=== PATIENT | male | born 1965 | race Caucasian/White ===

== ENCOUNTER 2020-06-19 21:40 | Inpatient (IN) | payer SELFPAY ==
[~2020-06-19] VITALS: Ht 167.6 cm; Wt 151.0 kg
[2020-06-19 21:53] VITALS: Ht 167.6 cm; Wt 151.0 kg
[2020-06-19 23:46] LABS: BASOPHIL % 1.2 % (0-2)
[2020-06-19 23:51] LABS: PLATELET COUNT 116 x10^3mcL (130-400); RED CELL DISTRIBUTION WIDTH 18.1 % (11.5-14.5)
[2020-06-20 00:03] LABS: BILIRUBIN TOTAL 0.3 mg/dL (0.20-1.00); CALCIUM 8.4 mg/dL (8.5-10.1); CARBON DIOXIDE 19.1 mmol/L (21-32)
[2020-06-20 00:10] LABS: CREATININE SERUM 16.5 mg/dL (0.7-1.3)
[2020-06-20 09:55] LABS: BASOPHIL % 0.9 % (0.2-1.5)
[2020-06-20 09:58] LABS: UA SPECIFIC GRAVITY 1.025 (1.005-1.035); microscopic required? YES; urine erythrocyte 1+ (NEGATIVE)
[2020-06-20 11:09] LABS: PLATELET COUNT 98 x10^3mcL (152-348)
[2020-06-20 11:10] LABS: rbc morphology (normal/abnorm) NORMAL (NORMAL)
[2020-06-20 11:35] LABS: AMPHETAMINE QUAL UR NONE DETECTED (See below)
[2020-06-20 12:28] LABS: IRON 438 ug/dL (65-170); TOTAL IRON BINDING CAPACITY 154 ug/dL (250-450)
[2020-06-20 12:39] LABS: CALCIUM 8.7 mg/dL (8.5-10.1); CARBON DIOXIDE 15.9 mmol/L (21-32)
[2020-06-20 12:45] LABS: POTASSIUM SERUM 6.2 mmol/L (3.5-5.1)
[2020-06-20 15:25] LABS: CALCIUM 8.3 mg/dL (8.5-10.1); POTASSIUM SERUM 5.3 mmol/L (3.5-5.1)
[2020-06-20 15:35] LABS: CREATININE SERUM 16.4 mg/dL (0.7-1.3)
[2020-06-20 18:30] VITALS: BP 117/45
[2020-06-20 20:52] VITALS: BP 119/51
[2020-06-20 23:59] LABS: CALCIUM 8.3 mg/dL (8.5-10.1); CARBON DIOXIDE 18.9 mmol/L (21-32)
[2020-06-21 00:03] LABS: CREATININE SERUM 17.3 mg/dL (0.7-1.3); POTASSIUM SERUM 6.4 mmol/L (3.5-5.1)
[2020-06-21 00:45] VITALS: BP 117/45
[2020-06-21 03:40] VITALS: BP 95/52
[2020-06-21 05:05] VITALS: BP 121/59
[2020-06-21 06:20] LABS: CALCIUM 8.2 mg/dL (8.5-10.1); CARBON DIOXIDE 20.3 mmol/L (21-32)
[2020-06-21 06:30] LABS: MAGNESIUM 2.5 mg/dL (1.8-2.4); PHOSPHOROUS 8.5 mg/dL (2.5-4.9)
[2020-06-21 06:32] LABS: BASOPHIL % 0.8 % (0.2-1.5)
[2020-06-21 06:34] LABS: POTASSIUM SERUM 6.1 mmol/L (3.5-5.1)
[2020-06-21 06:35] LABS: CREATININE SERUM 17.3 mg/dL (0.7-1.3)
[2020-06-21 07:17] LABS: PLATELET COUNT 77 x10^3mcL (152-348); RED CELL DISTRIBUTION WIDTH 18.4 % (12.1-16.2)
[2020-06-21 08:45] LABS: CREATININE UR 107.1 mg/dL
[2020-06-21 09:04] VITALS: BP 122/61
[2020-06-21 14:48] LABS: rbc morphology (normal/abnorm) ABNORMAL (NORMAL)
[2020-06-21 17:31] VITALS: BP 125/57
[2020-06-21 22:37] VITALS: BP 118/64
[2020-06-22 05:47] VITALS: BP 128/54
[2020-06-22 08:05] VITALS: BP 141/57
[2020-06-22 08:18] LABS: BASOPHIL % 1.1 % (0.2-1.5)
[2020-06-22 08:30] LABS: CALCIUM 7.8 mg/dL (8.5-10.1); CARBON DIOXIDE 25.4 mmol/L (21-32); PHOSPHOROUS 8.4 mg/dL (2.5-4.9); POTASSIUM SERUM 4.7 mmol/L (3.5-5.1)
[2020-06-22 08:45] LABS: CREATININE SERUM 14.1 mg/dL (0.7-1.3)
[2020-06-22 12:13] VITALS: BP 112/50
[2020-06-22 12:28] LABS: PLATELET COUNT 75 x10^3mcL (152-348)
[2020-06-22 14:39] LABS: rbc morphology (normal/abnorm) NORMAL (NORMAL)
[2020-06-22 16:03] VITALS: BP 20/59
[2020-06-22 16:19] LABS: PLATELET COUNT 74 x10^3mcL (152-348)
[2020-06-22 18:41] LABS: BAND NEUTROPHIL 0 % (0-10); BASOPHIL 0 % (0-2); MONOCYTE 14 % (0-7); SEGMENTED NEUTROPHILS 55 % (37-75)
[2020-06-22 18:42] LABS: rbc morphology (normal/abnorm) NORMAL (NORMAL)
[2020-06-22 21:27] VITALS: BP 125/62
[2020-06-22 22:03] LABS: PLATELET COUNT 79 x10^3mcL (152-348); RED CELL DISTRIBUTION WIDTH 17.5 % (12.1-16.2)
[2020-06-22 22:20] LABS: BAND NEUTROPHIL 3 % (0-10); BASOPHIL 0 % (0-2); MONOCYTE 13 % (0-7); MYELOCYTE 1 % (0-2); SEGMENTED NEUTROPHILS 45 % (37-75)
[2020-06-22 22:22] LABS: rbc morphology (normal/abnorm) ABNORMAL (NORMAL)
[2020-06-22 22:23] LABS: PLATELET MORPHOLOGY PLATELETS DECREASED
[2020-06-23 06:01] VITALS: BP 139/68
[2020-06-23 07:55] LABS: PLATELET COUNT 67 x10^3mcL (152-348)
[2020-06-23 08:28] LABS: CALCIUM 7.9 mg/dL (8.5-10.1); CARBON DIOXIDE 27.4 mmol/L (21-32); MAGNESIUM 1.8 mg/dL (1.8-2.4); PHOSPHOROUS 6.5 mg/dL (2.5-4.9); POTASSIUM SERUM 4.4 mmol/L (3.5-5.1)
[2020-06-23 09:01] VITALS: BP 131/71
[2020-06-23 10:19] LABS: CREATININE SERUM 11.7 mg/dL (0.7-1.3)
[2020-06-23 17:55] VITALS: BP 149/85
[2020-06-23 22:23] VITALS: BP 141/70
[2020-06-24 06:12] VITALS: BP 130/61
[2020-06-24 07:33] LABS: CALCIUM 8.2 mg/dL (8.5-10.1); CARBON DIOXIDE 26.5 mmol/L (21-32); MAGNESIUM 1.8 mg/dL (1.8-2.4); PHOSPHOROUS 6.5 mg/dL (2.5-4.9); POTASSIUM SERUM 5.1 mmol/L (3.5-5.1)
[2020-06-24 07:39] LABS: CREATININE SERUM 13.4 mg/dL (0.7-1.3)
[2020-06-24 07:46] LABS: PLATELET COUNT 68 x10^3mcL (152-348); RED CELL DISTRIBUTION WIDTH 16.6 % (12.1-16.2)
[2020-06-24 08:54] VITALS: BP 129/61
[2020-06-24 13:01] VITALS: BP 135/68
[2020-06-24 14:18] LABS: MONOCYTE 10 % (0-7); SEGMENTED NEUTROPHILS 53 % (37-75)
[2020-06-24 14:21] LABS: rbc morphology (normal/abnorm) NORMAL (NORMAL)
[2020-06-24 18:40] VITALS: BP 145/71
[2020-06-24 20:39] VITALS: BP 136/66
[2020-06-25] VITALS: BP 147/75
[2020-06-25 05:18] VITALS: BP 144/69
[2020-06-25 09:13] LABS: CARBON DIOXIDE 29.2 mmol/L (21-32); CREATININE SERUM 10.3 mg/dL (0.7-1.3); MAGNESIUM 1.8 mg/dL (1.8-2.4); POTASSIUM SERUM 4.1 mmol/L (3.5-5.1)
[2020-06-25 09:26] LABS: PLATELET COUNT 75 x10^3mcL (152-348)
[2020-06-25 09:28] VITALS: BP 141/70
[2020-06-25 12:45] VITALS: BP 142/69
[2020-06-25 13:08] LABS: BAND NEUTROPHIL 5 % (0-10); SEGMENTED NEUTROPHILS 39 % (37-75)
[2020-06-25 13:09] LABS: MONOCYTE 15 % (0-7); PLATELET MORPHOLOGY PLATELETS DECREASED; rbc morphology (normal/abnorm) NORMAL (NORMAL)
[2020-06-25 17:02] VITALS: BP 145/87
[2020-06-25 21:01] VITALS: BP 110/59
[2020-06-26 05:42] VITALS: BP 133/73
[2020-06-26 08:03] LABS: CALCIUM 8.5 mg/dL (8.5-10.1); CARBON DIOXIDE 27.3 mmol/L (21-32); MAGNESIUM 1.8 mg/dL (1.8-2.4); PHOSPHOROUS 5.1 mg/dL (2.5-4.9); POTASSIUM SERUM 4.5 mmol/L (3.5-5.1)
[2020-06-26 08:05] VITALS: BP 133/78
[2020-06-26 08:08] LABS: CREATININE SERUM 11.8 mg/dL (0.7-1.3)
[2020-06-26 08:56] LABS: PLATELET COUNT 84 x10^3mcL (152-348); RED CELL DISTRIBUTION WIDTH 17.2 % (12.1-16.2)
[2020-06-26 10:59] LABS: BAND NEUTROPHIL 5 % (0-10); MONOCYTE 14 % (0-7); SEGMENTED NEUTROPHILS 40 % (37-75); rbc morphology (normal/abnorm) NORMAL (NORMAL)
[2020-06-26 11:00] LABS: PLATELET MORPHOLOGY PLATELETS DECREASED
[2020-06-26 11:53] VITALS: BP 145/67
[2020-06-26 20:43] VITALS: BP 138/68
[2020-06-27 05:47] VITALS: BP 135/71
[2020-06-27 09:21] VITALS: BP 134/69
[2020-06-27 10:19] LABS: CALCIUM 8.7 mg/dL (8.5-10.1); CARBON DIOXIDE 27.1 mmol/L (21-32); MAGNESIUM 1.8 mg/dL (1.8-2.4); PHOSPHOROUS 4.3 mg/dL (2.5-4.9); POTASSIUM SERUM 4.1 mmol/L (3.5-5.1)
[2020-06-27 11:08] LABS: BASOPHIL % 1.1 % (0.2-1.5)
[2020-06-27 11:31] LABS: CREATININE SERUM 10.3 mg/dL (0.7-1.3)
[2020-06-27 12:45] LABS: PLATELET COUNT 100 x10^3mcL (152-348); RED CELL DISTRIBUTION WIDTH 16.8 % (12.1-16.2)
[2020-06-27 13:00] VITALS: BP 109/64
[2020-06-27 16:04] VITALS: BP 112/52
[2020-06-27 21:53] VITALS: BP 114/61
[2020-06-28 06:06] VITALS: BP 125/62
[2020-06-28 07:40] VITALS: BP 141/67
[2020-06-28 08:21] LABS: BASOPHIL % 1.2 % (0.2-1.5)
[2020-06-28 09:01] LABS: PLATELET COUNT 101 x10^3mcL (152-348)
[2020-06-28 09:14] LABS: CALCIUM 8.7 mg/dL (8.5-10.1); CARBON DIOXIDE 28.2 mmol/L (21-32); MAGNESIUM 1.9 mg/dL (1.8-2.4); PHOSPHOROUS 4.5 mg/dL (2.5-4.9)
[2020-06-28 09:21] LABS: CREATININE SERUM 11.8 mg/dL (0.7-1.3)
[2020-06-28 12:27] VITALS: BP 119/61
[2020-06-28 16:10] VITALS: BP 120/43
[2020-06-28 20:17] VITALS: BP 143/70
[2020-06-29 05:26] VITALS: BP 146/72
[2020-06-29 07:39] LABS: BASOPHIL % 1.1 % (0.2-1.5)
[2020-06-29 08:00] LABS: CARBON DIOXIDE 24.1 mmol/L (21-32); MAGNESIUM 2.1 mg/dL (1.8-2.4); POTASSIUM SERUM 4.8 mmol/L (3.5-5.1)
[2020-06-29 08:34] VITALS: BP 109/54; BP 134/69
[2020-06-29 09:58] LABS: PLATELET COUNT 107 x10^3mcL (152-348); RED CELL DISTRIBUTION WIDTH 16.9 % (12.1-16.2)
[2020-06-29 11:41] LABS: CREATININE SERUM 13.9 mg/dL (0.7-1.3)
[2020-06-29 12:04] VITALS: BP 114/48
[2020-06-29 16:52] VITALS: BP 126/63
[2020-06-29 21:47] VITALS: BP 132/68
[2020-06-30 04:53] VITALS: BP 152/64
[2020-06-30 07:18] LABS: CALCIUM 8.9 mg/dL (8.5-10.1); CARBON DIOXIDE 26.7 mmol/L (21-32); MAGNESIUM 1.9 mg/dL (1.8-2.4); PHOSPHOROUS 4.5 mg/dL (2.5-4.9); POTASSIUM SERUM 5.3 mmol/L (3.5-5.1)
[2020-06-30 07:19] LABS: CREATININE SERUM 10.9 mg/dL (0.7-1.3)
[2020-06-30 08:27] VITALS: BP 140/70
[2020-06-30 11:51] LABS: PLATELET COUNT 123 x10^3mcL (152-348); RED CELL DISTRIBUTION WIDTH 16.8 % (12.1-16.2)
[2020-06-30 12:41] VITALS: BP 127/55
[2020-06-30 13:55] LABS: BAND NEUTROPHIL 4 % (0-10); MONOCYTE 16 % (0-7); SEGMENTED NEUTROPHILS 42 % (37-75); rbc morphology (normal/abnorm) ABNORMAL (NORMAL)
[2020-06-30] MEDS ORDERED: PHOS PO (15:27)
[2020-06-30] MEDS ORDERED: COR3 PO (15:27)
[2020-06-30] MEDS ORDERED: NEP PO (15:27)
[2020-06-30 16:58] VITALS: BP 114/72
== END 2020-06-30 19:09 | disposition home or self-care (01) | DRG 673 ==
LOC: ED 21:40 → DU 06-20 00:38
PROVIDERS: Emergency Medicine; Internal Medicine; Internal Medicine Nephrology; Surgery; ADMIT Family Medicine; ATTEND Family Medicine
PROC: 0JH63XZ Insertion of Tunneled Vascular Access Device into Chest Subcutaneous Tissue and Fascia, Percutaneous Approach (ICD-10-PCS; 2020-06-21)
PROC: 05HY33Z Insertion of Infusion Device into Upper Vein, Percutaneous Approach (ICD-10-PCS; 2020-06-21)
PROC: B54MZZA Ultrasonography of Right Upper Extremity Veins, Guidance (ICD-10-PCS; 2020-06-21)
PROC: 5A1D70Z Performance of Urinary Filtration, Intermittent, Less than 6 Hours Per Day (ICD-10-PCS; 2020-06-21)
PROC: 30233N1 Transfusion of Nonautologous Red Blood Cells into Peripheral Vein, Percutaneous Approach (ICD-10-PCS; principal; 2020-06-21 11:30)
PROC: 5A1D70Z Performance of Urinary Filtration, Intermittent, Less than 6 Hours Per Day (ICD-10-PCS; 2020-06-22)
PROC: 5A1D70Z Performance of Urinary Filtration, Intermittent, Less than 6 Hours Per Day (ICD-10-PCS; 2020-06-24)
PROC: 5A1D70Z Performance of Urinary Filtration, Intermittent, Less than 6 Hours Per Day (ICD-10-PCS; 2020-06-26)
PROC: 5A1D70Z Performance of Urinary Filtration, Intermittent, Less than 6 Hours Per Day (ICD-10-PCS; 2020-06-29)
DX: N17.0 Acute kidney failure with tubular necrosis (principal); K85.90 Acute pancreatitis without necrosis or infection, unspecified; E87.1 Hypo-osmolality and hyponatremia; I12.0 Hypertensive chronic kidney disease with stage 5 chronic kidney disease or end stage renal disease; D62 Acute posthemorrhagic anemia; E44.1 Mild protein-calorie malnutrition; Z68.42 Body mass index [BMI] 45.0-49.9, adult; N18.6 End stage renal disease; Z20.828 Contact with and (suspected) exposure to other viral communicable diseases; E87.5 Hyperkalemia; D63.1 Anemia in chronic kidney disease
CPT/HCPCS: 82962; 83880; 86580; C9113; G0378; J0610; J0690; J0885-EC; J1200; J1644; J1815; J2250; J2270; J2405; J3010; J3490; J7030; J7050; P9016; Q0163; U0003

== ENCOUNTER 2020-07-06 15:55 | Inpatient (IN) | payer SELFPAY ==
[~2020-07-06] VITALS: Ht 172.7 cm; Wt 145.1 kg
[~2020-07-06 15:55] MED LIST: COR3 PO; NEP PO; PHOS PO
[2020-07-06 18:28] LABS: PLATELET COUNT 167 x10^3mcL (152-348)
[2020-07-06 18:29] VITALS: Ht 172.7 cm; Wt 145.1 kg
[2020-07-06 18:50] LABS: RED CELL DISTRIBUTION WIDTH 16.9 % (12.1-16.2)
[2020-07-06 18:58] LABS: BILIRUBIN TOTAL 0.4 mg/dL (0.20-1.00); CALCIUM 9.6 mg/dL (8.5-10.1); CARBON DIOXIDE 29.8 mmol/L (21-32)
[2020-07-06 19:10] LABS: ALBUMIN 2.7 g/dL (3.4-5.0)
[2020-07-06 19:11] LABS: CREATININE SERUM 13.8 mg/dL (0.7-1.3)
[2020-07-06 22:51] LABS: BAND NEUTROPHIL 8 % (0-10); BASOPHIL 0 % (0-2); METAMYELOCTE 3 % (0-2); MONOCYTE 15 % (0-7); SEGMENTED NEUTROPHILS 31 % (37-75)
[2020-07-06 22:53] LABS: PLATELET MORPHOLOGY PLATELETS NORMAL; rbc morphology (normal/abnorm) NORMAL (NORMAL)
[2020-07-07 11:23] LABS: UA SPECIFIC GRAVITY 1.015 (1.005-1.035); microscopic required? YES; urine erythrocyte NEGATIVE (NEGATIVE)
[2020-07-07 13:29] LABS: CALCIUM 9.4 mg/dL (8.5-10.1); CARBON DIOXIDE 28.2 mmol/L (21-32); MAGNESIUM 2.4 mg/dL (1.8-2.4); PHOSPHOROUS 6.7 mg/dL (2.5-4.9); POTASSIUM SERUM 4.9 mmol/L (3.5-5.1)
[2020-07-07 13:30] LABS: CREATININE SERUM 15.5 mg/dL (0.7-1.3)
[2020-07-07 13:49] LABS: PLATELET COUNT 162 x10^3mcL (152-348)
[2020-07-07 14:03] LABS: RED CELL DISTRIBUTION WIDTH 16.7 % (12.1-16.2)
[2020-07-07 15:32] LABS: MONOCYTE 10 % (0-7); SEGMENTED NEUTROPHILS 70 % (37-75); rbc morphology (normal/abnorm) ABNORMAL (NORMAL)
[2020-07-07 18:32] VITALS: BP 121/55
[2020-07-07 20:53] VITALS: BP 134/77
[2020-07-08 05:13] VITALS: BP 137/67
[2020-07-08 07:32] LABS: PLATELET COUNT 136 x10^3mcL (152-348)
[2020-07-08 07:42] LABS: RED CELL DISTRIBUTION WIDTH 16.5 % (12.1-16.2)
[2020-07-08 08:01] LABS: CALCIUM 8.9 mg/dL (8.5-10.1)
[2020-07-08 09:24] VITALS: BP 147/70
[2020-07-08 11:35] LABS: CARBON DIOXIDE 26.1 mmol/L (21-32); MAGNESIUM 2.4 mg/dL (1.8-2.4); PHOSPHOROUS 6.9 mg/dL (2.5-4.9)
[2020-07-08 11:38] LABS: CREATININE SERUM 16.4 mg/dL (0.7-1.3)
[2020-07-08 12:18] VITALS: BP 131/65
[2020-07-08 12:31] LABS: BASOPHIL 0 % (0-2); MONOCYTE 15 % (0-7); SEGMENTED NEUTROPHILS 45 % (37-75); rbc morphology (normal/abnorm) ABNORMAL (NORMAL)
[2020-07-08 12:32] LABS: PLATELET MORPHOLOGY PLATELETS NORMAL
[2020-07-08 17:23] VITALS: BP 123/62
[2020-07-08 17:44] VITALS: BP 123/62
== END 2020-07-08 18:57 | disposition home or self-care (01) | DRG 314 ==
LOC: ED 15:55 → DU 19:49 → MU 07-08 15:49
PROVIDERS: Emergency Medicine; Family Medicine; ADMIT Internal Medicine; ATTEND Internal Medicine
PROC: 0JH63XZ Insertion of Tunneled Vascular Access Device into Chest Subcutaneous Tissue and Fascia, Percutaneous Approach (ICD-10-PCS; principal; 2020-07-06)
PROC: 02HV33Z Insertion of Infusion Device into Superior Vena Cava, Percutaneous Approach (ICD-10-PCS; 2020-07-06)
PROC: B5181ZA Fluoroscopy of Superior Vena Cava using Low Osmolar Contrast, Guidance (ICD-10-PCS; 2020-07-06)
PROC: 02PYX3Z Removal of Infusion Device from Great Vessel, External Approach (ICD-10-PCS; 2020-07-06)
PROC: 5A1D70Z Performance of Urinary Filtration, Intermittent, Less than 6 Hours Per Day (ICD-10-PCS; 2020-07-07)
PROC: 30233N1 Transfusion of Nonautologous Red Blood Cells into Peripheral Vein, Percutaneous Approach (ICD-10-PCS; 2020-07-07)
PROC: 5A1D70Z Performance of Urinary Filtration, Intermittent, Less than 6 Hours Per Day (ICD-10-PCS; 2020-07-08)
DX: T82.838A Hemorrhage due to vascular prosthetic devices, implants and grafts, initial encounter (principal); N18.6 End stage renal disease; I12.0 Hypertensive chronic kidney disease with stage 5 chronic kidney disease or end stage renal disease; Y83.8 Other surgical procedures as the cause of abnormal reaction of the patient, or of later complication, without mention of misadventure at the time of the procedure; Z20.822 Contact with and (suspected) exposure to COVID-19; Y92.89 Other specified places as the place of occurrence of the external cause; I12.9 Hypertensive chronic kidney disease with stage 1 through stage 4 chronic kidney disease, or unspecified chronic kidney disease; E11.22 Type 2 diabetes mellitus with diabetic chronic kidney disease; N18.9 Chronic kidney disease, unspecified; Z99.2 Dependence on renal dialysis; D63.1 Anemia in chronic kidney disease; E87.5 Hyperkalemia; E83.39 Other disorders of phosphorus metabolism
CPT/HCPCS: A4301; G0378; J0690; J0885-EC; J1644; J3010; J3490; J7030; J7050; P9016; U0003